=== PATIENT | female | born 1980 | race Caucasian/White ===

== ENCOUNTER → 2016-04-30 | Outpatient (CLI) | payer OTHER ==
[2013-10-26 15:10] VITALS: BP 112/78
[~2016-04-30] MED LIST: HYDR-2666 PO; IBUP-1060 PO
--- NOTE | 2016-04-30 10:16 | KCIC ---
Examination: Ultrasound pelvis. HISTORY History of right lower quadrant, pelvic pain. COMPARISON None available Findings: The uterus is not identified likely prior hysterectomy. The left ovary is not visualized likely prior oophorectomy changes. The right ovary measures 2.4 x 4.0 x 1.9 centimeters. Blood flow identified in the right ovary. IMPRESSION Normal appearing right ovary. The left ovary and the uterus are not identified could be due to prior surgical changes. Electronically signed by: Reid Allan (Apr 30, 2016 10:15:15)
== END | disposition home or self-care (01) ==
LOC: KCIC US 09:41
PROVIDERS: ATTEND Nurse Practitioner Family
DX: R10.2 Pelvic and perineal pain (principal)
CPT/HCPCS: 76856

== ENCOUNTER 2016-10-27 11:47 | Observation (INO) | payer OTHER ==
[~2016-10-27] VITALS: Ht 170.2 cm; Wt 131.5 kg
[2016-10-27] VITALS (7 sets, daily range): BP systolic 103–141; BP diastolic 55–77
[~2016-10-27 11:47] MED LIST changes: -HYDR-2666 PO; +HYDR-2758 PO
--- NOTE | 2016-10-27 12:29 | PHYS DOC ---
Past Medical History Past Medical History: No Pertinent History Past Surgical History: Cholecystectomy, Hysterectomy, Tonsillectomy, Tubal ligation, Other Additional Past Surgical Histo: Uterine ablation. adreal ectomy Alcohol Use: Rarely Drug Use: None Adult General Chief Complaint Chief Complaint: ABDOMINAL PAIN HPI HPI Patient is a 36 year old female presenting to the emergency department for evaluation of right lower quadrant abdominal pain that woke her from her sleep at approximately 5 AM this morning. She says that it has worsened throughout the day and she has had 2 episodes of nonbloody nonbilious emesis. Pain is sharp with no radiation fevers chills dysuria hematuria diarrhea or constipation. She has had multiple abdominal surgeries including a hysterectomy with her right ovary still present. Review of Systems Review of Systems Constitutional: Denies fever or chills [] Eyes: Denies change in visual acuity, redness, or eye pain [] HENT: Denies nasal congestion or sore throat [] Respiratory: Denies cough or shortness of breath [] Cardiovascular: No additional information not addressed in HPI [] GI: + abdominal pain, nausea, vomiting. No bloody stools or diarrhea [] : Denies dysuria or hematuria [] Musculoskeletal: Denies back pain or joint pain [] Integument: Denies rash or skin lesions [] Neurologic: Denies headache, focal weakness or sensory changes [] Current Medications Current Medications Current Medications Medications (Trade) Dose Ordered Sig/Osbaldo Start Time Stop Time Status Last Admin Dose Admin Info (Do NOT chart on this entry -- for MONITORING) 1 each PRN DAILY PRN 10/27/16 12:45 10/29/16 12:44 Iohexol (Omnipaque 300 Mg/ml) 75 ml 1X ONCE 10/27/16 12:45 10/27/16 12:46 DC 10/27/16 13:45 75 ML Ketorolac Tromethamine (Toradol) 30 mg 1X ONCE 10/27/16 16:30 10/27/16 16:31 DC Morphine Sulfate 5 mg 1X ONCE 10/27/16 14:00 10/27/16 14:01 DC 10/27/16 14:07 5 MG Ondansetron HCl (Zofran) 8 mg 1X ONCE 10/27/16 12:45 10/27/16 12:46 DC 10/27/16 13:01 8 MG Sodium Chloride 1,000 ml @ 1,000 mls/hr 1X ONCE 10/27/16 12:45 10/27/16 13:44 DC 10/27/16 13:01 1,000 MLS/HR Allergies Allergies Allergies Coded Allergies Type Severity Reaction Last Updated Verified guaifenesin Adverse Reaction Intermediate passed out 10/23/13 No phenylephrine Adverse Reaction Intermediate passed out 10/23/13 No phenylpropanolamine Adverse Reaction Intermediate passed out 10/23/13 No Physical Exam Physical Exam Constitutional: Well developed, well nourished, no acute distress, non-toxic appearance. [] HENT: Normocephalic, atraumatic, bilateral external ears normal, oropharynx moist, no oral exudates, nose normal. [] Eyes: PERRLA, EOMI, conjunctiva normal, no discharge. [] Neck: Normal range of motion, no tenderness, supple, no stridor. [] Cardiovascular:Heart rate regular rhythm, no murmur [] Lungs & Thorax: Bilateral breath sounds clear to auscultation [] Abdomen: Bowel sounds normal, soft, + RLQ tenderness over McBurney's, no rebound or guarding, no masses, no pulsatile masses. [] Skin: Warm, dry, no erythema, no rash. [] Back: No tenderness, no CVA tenderness. [] Extremities: No tenderness, no cyanosis, no clubbing, ROM intact, no edema. [] Neurologic: Alert and oriented X 3, normal motor function, normal sensory function, no focal deficits noted. [] Current Patient Data Vital Signs Vital Signs Date Time Temp Pulse Resp B/P (MAP) Pulse Ox O2 Delivery O2 Flow Rate FiO2 10/27/16 17:00 72 122/64 (83) 97 Room Air 10/27/16 15:05 14 10/27/16 12:16 98.2 98.2 Lab Values Laboratory Tests Test 10/27/16 11:24 10/27/16 12:16 10/27/16 12:55 POC Urine HCG, Qualitative Hcg negative (Negative) Urine Collection Type Unknown Urine Color Yellow Urine Clarity Clear Urine pH 6.5 Urine Specific [place] 1.010 Urine Protein Negative mg/dL (NEG-TRACE) Urine Glucose (UA) Negative mg/dL (NEG) Urine Ketones (Stick) Negative mg/dL (NEG) Urine Blood Negative (NEG) Urine Nitrite Negative (NEG) Urine Bilirubin Negative (NEG) Urine Urobilinogen Dipstick 1.0 mg/dL (0.2 mg/dL) Urine Leukocyte Esterase Negative (NEG) Urine RBC 0 /HPF (0-2) Urine WBC 0 /HPF (0-4) Urine Squamous Epithelial Cells Mod /LPF Urine Bacteria Moderate /HPF (0-FEW) Urine Mucus Mod /LPF White Blood Count 7.8 x10^3/uL (4.0-11.0) Red Blood Count 4.30 x10^6/uL (3.50-5.40) Hemoglobin 11.7 g/dL (12.0-15.5) L Hematocrit 36.0 % (36.0-47.0) Mean Corpuscular Volume 84 fL (79-100) Mean Corpuscular Hemoglobin 27 pg (25-35) Mean Corpuscular Hemoglobin Concent 33 g/dL (31-37) Red Cell Distribution Width 13.6 % (11.5-14.5) Platelet Count 241 x10^3/uL (140-400) Neutrophils (%) (Auto) 70 % (31-73) Lymphocytes (%) (Auto) 24 % (24-48) Monocytes (%) (Auto) 3 % (0-9) Eosinophils (%) (Auto) 1 % (0-3) Basophils (%) (Auto) 1 % (0-3) Neutrophils # (Auto) 5.4 x10^3uL (1.8-7.7) Lymphocytes # (Auto) 1.9 x10^3/uL (1.0-4.8) Monocytes # (Auto) 0.3 x10^3/uL (0.0-1.1) Eosinophils # (Auto) 0.1 x10^3/uL (0.0-0.7) Basophils # (Auto) 0.1 x10^3/uL (0.0-0.2) Prothrombin Time 13.1 SEC (11.7-14.0) Prothrombin Time INR 1.1 (0.8-1.1) PTT 33 SEC (24-38) Sodium Level 142 mmol/L (136-145) Potassium Level 3.8 mmol/L (3.5-5.1) Chloride Level 106 mmol/L (98-107) Carbon Dioxide Level 27 mmol/L (21-32) Anion Gap 9 (6-14) Blood Urea Nitrogen 9 mg/dL (7-20) Creatinine 0.7 mg/dL (0.6-1.0) Estimated GFR (Cockcroft-Gault) 95.2 BUN/Creatinine Ratio 13 (6-20) Glucose Level 90 mg/dL (70-99) Calcium Level 8.7 mg/dL (8.5-10.1) Total Bilirubin 0.3 mg/dL (0.2-1.0) Aspartate Amino Transferase (AST) 14 U/L (15-37) L Alanine Aminotransferase (ALT) 19 U/L (14-59) Alkaline Phosphatase 61 U/L (46-116) Total Protein 7.5 g/dL (6.4-8.2) Albumin 3.5 g/dL (3.4-5.0) Albumin/Globulin Ratio 0.9 (1.0-1.7) L Lipase 88 U/L (73-393) Laboratory Tests 10/27/16 12:55 Laboratory Tests 10/27/16 12:55 EKG EKG [] Radiology/Procedures Radiology/Procedures CT of the abdomen and pelvis with contrast, 10/27/2016: History: Right lower quadrant pain and vomiting Multidetector CT imaging was performed following an IV bolus injection of iodinated contrast material. No oral contrast material was administered for this study. Comparison is made to an exam from 09/25/2013. The gallbladder is surgically absent. No hepatic abnormality is seen. The pancreas is unremarkable. The spleen is of normal size. There is a 5 cm parapelvic renal cyst on the left. It has increased slightly in size since 09/25/2013. The kidneys are otherwise unremarkable. There are surgical clips in the left suprarenal region compatible with the history of an adrenalectomy. The abdominal aorta is unremarkable. The uterus is surgically absent. The bowel loops are not dilated. A normal-appearing appendix can be seen extending posteromedially from the cecum. There is a 4 cm mass in the upper pelvis on the right along the posterior aspect of the cecum and the anterolateral aspect of the psoas muscle in the right iliac fossa region. This may represent the right ovary. A similar sized structure was seen in the right lower quadrant on the ultrasound exam of 04/30/2016. The left ovary is reportedly surgically absent. No free fluid or free air is evident in the abdomen or pelvis. A fascial defect is now evident near the midline in the upper abdomen. This small hernia contains only fat. No herniated bowel is evident. IMPRESSION: 1. Small mass in the upper right pelvis along the posterior aspect of the cecum most likely represents an unusually positioned right ovary. 2. Left renal cyst. 3. Small fat-containing ventral hernia. 4. No acute abdominal or pelvic abnormality is detected. PQRS Compliance Statement: One or more of the following individualized dose reduction techniques were utilized for this examination: 1. Automated exposure control 2. Adjustment of the mA and/or kV according to patient size 3. Use of iterative reconstruction technique DICTATED and SIGNED BY: ALIYA HICKS MD DATE: 10/27/16 1412 Course & Med Decision Making Course & Med Decision Making Patient with nonspecific right lower quadrant abdominal pains or she'll get labs CT treat symptoms and reassess. My initial clinical assessment is that she may have appendicitis. CT negative but she says that she is still having severe pain. We will check ultrasound given abnormal climbing over and then reassess. Ultrasound was nondiagnostic and given her continued pain and concern for possible ovarian torsion the block breaker operator was emergently consulted Patient still continues to have pain and radiographically we have not made a diagnosis at this point. I spoke to Dr. Woo on the phone and he said he would come consult on the patient does patient may need a laparoscopy. I spoke to Dr. Burgess as well and he said he would be available soon for surgical consult if needed. Patient went to the operating room at approximately 1830. Unfortunately patient had nonspecific presentation with an appendix present playing with her diagnosis of potential ovarian torsion. Patient will be admitted under the care of Dr. Woo in stable condition. Dragon Disclaimer Dragon Disclaimer This electronic medical record was generated, in whole or in part, using a voice recognition dictation system. Departure Departure Impression: Primary Impression: Abdominal pain Disposition: ADMITTED INPATIENT Admitting Physician: Other (Chilo) Referrals: HORACIO CARTAGENA APRN (PCP) Problem Qualifiers Primary Impression: Abdominal pain Abdominal location: right lower quadrant Qualified Codes: R10.31 - Right lower quadrant pain INGRIS BAH DO Oct 27, 2016 12:29
[2016-10-27] MEDS ORDERED: IOHEXOL 300 MG/ML 75 ML VIAL IV ONE (12:45)
[2016-10-27] MEDS ORDERED: ONDANSETRON PF 4 MG/2 ML VIAL. IV ONE (12:45)
[2016-10-27] MEDS ORDERED: MORPHINE SULFATE 10 MG/ML VIAL. IV ONE ×2 (12:45→14:00)
[2016-10-27] MEDS ORDERED: CONTRAST GIVEN MC PRN (12:45)
[2016-10-27] MEDS ORDERED: IV NORMAL SALINE 1000ML BAG 1,000 ML IV ONE (12:45)
[2016-10-27 12:47] LABS: BILIRUBIN,URINE NEGATIVE (NEG); GLUCOSE,URINE NEGATIVE (NEG); NITRITE,URINE NEGATIVE (NEG); PH,URINE 6.5; PROTEIN,URINE NEGATIVE (NEG-TRACE)
[2016-10-27 12:56] LABS: BACTERIA,URINE MODERATE /HPF (0-FEW); RBC,URINE 0 /HPF (0-2); SQUAMOUS EPITHELIAL CELL,UR MOD /LPF; WBC,URINE 0 /HPF (0-4)
[2016-10-27 13:21] LABS: BASO # 0.1 x10^3/uL (0.0-0.2); BASO % 1 % (0-3); EOS % 1 % (0-3); HEMOGLOBIN 11.7 g/dL (12.0-15.5); LYMPH # 1.9 x10^3/uL (1.0-4.8); LYMPH % 24 % (24-48); MEAN CORPUSCULAR HEMOGLOBIN 27 pg (25-35); MEAN CORPUSCULAR HGB CONC 33 g/dL (31-37); MEAN CORPUSCULAR VOLUME 84 fL (79-100); MONO % 3 % (0-9); NEUT % 70 % (31-73); PLATELET COUNT 241 x10^3/uL (140-400); RED CELL DISTRIBUTION WIDTH 13.6 % (11.5-14.5); WHITE BLOOD COUNT 7.8 x10^3/uL (4.0-11.0)
[2016-10-27 13:31] LABS: INR 1.1 (0.8-1.1); PROTHROMBIN TIME PATIENT 13.1 SEC (11.7-14.0)
[2016-10-27 13:33] LABS: CALCIUM 8.7 mg/dL (8.5-10.1); CREATININE 0.7 mg/dL (0.6-1.0); GFR 95.2; POTASSIUM 3.8 mmol/L (3.5-5.1)
[2016-10-27 13:38] LABS: ALBUMIN 3.5 g/dL (3.4-5.0); ALBUMIN/GLOBULIN RATIO 0.9 (1.0-1.7); TOTAL BILIRUBIN 0.3 mg/dL (0.2-1.0); TOTAL PROTEIN 7.5 g/dL (6.4-8.2)
--- NOTE | 2016-10-27 14:33 | RAD ---
CT of the abdomen and pelvis with contrast, 10/27/2016: History: Right lower quadrant pain and vomiting Multidetector CT imaging was performed following an IV bolus injection of iodinated contrast material. No oral contrast material was administered for this study. Comparison is made to an exam from 09/25/2013. The gallbladder is surgically absent. No hepatic abnormality is seen. The pancreas is unremarkable. The spleen is of normal size. There is a 5 cm parapelvic renal cyst on the left. It has increased slightly in size since 09/25/2013. The kidneys are otherwise unremarkable. There are surgical clips in the left suprarenal region compatible with the history of an adrenalectomy. The abdominal aorta is unremarkable. The uterus is surgically absent. The bowel loops are not dilated. A normal-appearing appendix can be seen extending posteromedially from the cecum. There is a 4 cm mass in the upper pelvis on the right along the posterior aspect of the cecum and the anterolateral aspect of the psoas muscle in the right iliac fossa region. This may represent the right ovary. A similar sized structure was seen in the right lower quadrant on the ultrasound exam of 04/30/2016. The left ovary is reportedly surgically absent. No free fluid or free air is evident in the abdomen or pelvis. A fascial defect is now evident near the midline in the upper abdomen. This small hernia contains only fat. No herniated bowel is evident. IMPRESSION: 1. Small mass in the upper right pelvis along the posterior aspect of the cecum most likely represents an unusually positioned right ovary. 2. Left renal cyst. 3. Small fat-containing ventral hernia. 4. No acute abdominal or pelvic abnormality is detected. PQRS Compliance Statement: One or more of the following individualized dose reduction techniques were utilized for this examination: 1. Automated exposure control 2. Adjustment of the mA and/or kV according to patient size 3. Use of iterative reconstruction technique
[2016-10-27] MEDS ORDERED: KETOROLAC TROMETHAMINE 30 MG/ML INJ. IV ONE (16:30)
--- NOTE | 2016-10-27 17:08 | RAD ---
Ultrasound pelvis 10/27/2016 at 1539 hours Indication: Right lower pelvic pain Comparison: CT abdomen/pelvis 10/27/2016 Technique: Sonographic imaging of the pelvis was performed utilizing transabdominal and transvaginal imaging. Grayscale, color Doppler and spectral waveform analysis was performed. Findings: There is a nondescript hypoechoic focus measuring 2.2 x 1.5 x 2.9 cm without follicular changes. It is difficult to ascertain whether this is the right ovary. Arterial waveform is not identified utilizing spectral analysis. Venous waveform is noted. Small amount of free fluid is noted within the pelvis. Vaginal cuff is within normal limits. Status post hysterectomy and left oophorectomy. Impression: 1. There is a 2.2 x 1.5 x 2.9 cm nondescript focus in the right pelvis, of uncertain etiology. It cannot be confirmed that this is the right ovary. This appears to be in a separate location compared to the retrocecal mass. Recommend gynecologic consultation as differential considerations would include ovarian torsion versus a retrocecal mass such as a mucocele or appendiceal mass versus enlarged lymph node. Critical findings were discussed with Dr. Ferreria at 5:00 PM on 10/27/[address] Blas.
[2016-10-27] MEDS ORDERED: PROMETHAZINE 25 MG in IV NORMAL SALINE 50ML 50 ML IV ONE (17:45)
[2016-10-27] MEDS ORDERED: LIDOCAINE 2% PF Vial for OR 5 ML VIAL. ONE (18:11)
[2016-10-27] MEDS ORDERED: PROPOFOL 20 ML IV ONE (18:11)
[2016-10-27] MEDS ORDERED: DEXAMETHASONE SOD PHOS 20 MG/5 ML VIAL. ONE (18:11)
[2016-10-27] MEDS ORDERED: ONDANSETRON PF 4 MG/2 ML VIAL. ONE (18:11)
[2016-10-27] MEDS ORDERED: DESFLURANE 61 TO 120 MINUTES IH ONE (18:11)
[2016-10-27] MEDS ORDERED: MIDAZOLAM HCL/PF 2 MG/2 ML VIAL. ONE (18:11)
[2016-10-27] MEDS ORDERED: fentaNYL PF VIAL 100 MCG/2 ML VIAL ONE (18:12)
[2016-10-27] MEDS ORDERED: fentaNYL PF VIAL 100 MCG/2 ML VIAL IV PRN ×3 (18:15→20:00)
[2016-10-27] MEDS ORDERED: ONDANSETRON PF 4 MG/2 ML VIAL. IV PRN ×3 (18:15→20:00)
[2016-10-27] MEDS ORDERED: BUPIVAC MPF-EPI 0.5%-1:200000 30 ML VIAL. ONE (18:32)
[2016-10-27] MEDS ORDERED: SURGICEL HEMOSTAT 4X8 EACH. ONE (18:32)
[2016-10-27] MEDS ORDERED: 0.9 % SODIUM CHLORIDE 50 ML VIAL. IJ ONE (18:32)
--- NOTE | 2016-10-27 18:41 | PDOC1 ---
History and Physical Date of Admission Date of Admission DATE: 10/27/16 TIME: 18:37 Identification/Chief Complaint Chief Complaint Abd pain Problems: Source Source: Chart review, Patient History of Present Illness History of Present Illness 36 y/o with gradual onset of RLQ with N/V that continued to worsen since 0500 today. She has h/o MARIFER, LSO, Cholecystectomy, Nephrectomy/Adrenalectomy in the past. Past Surgical History Past Surgical History: Cholecystectomy, Hysterectomy Social History Smoke: No ALCOHOL: none Drugs: None Current Problem List Problem List Problems Medical Problems: (1) Abdominal pain Status: Acute Problems: Current Medications Current Medications Current Medications Sodium Chloride 1,000 ml @ 1,000 mls/hr 1X ONCE IV Last administered on 13:01; Start 10/27/16 at 12:45; Stop 10/27/16 at 13:44; Status DC Morphine Sulfate 5 mg 1X ONCE IV Last administered on 10/27/16 13:01; Start 10/27/16 at 12:45; Stop 10/27/16 at 12:46; Status DC Ondansetron HCl (Zofran) 8 mg 1X ONCE IV Last administered on 10/27/16 13:01 ; Start 10/27/16 at 12:45; Stop 10/27/16 at 12:46; Status DC Iohexol (Omnipaque 300 Mg/ml) 75 ml 1X ONCE IV Last administered on 10/27/16 13:45; Start 10/27/16 at 12:45; Stop 10/27/16 at 12:46; Status DC Info (Do NOT chart on this entry -- for MONITORING) 1 each PRN DAILY PRN MC SEE COMMENTS; Start 10/27/16 at 12:45; Stop 10/29/16 at 12:44 Morphine Sulfate 5 mg 1X ONCE IV Last administered on 10/27/16 14:07; Start 10/27/16 at 14:00; Stop 10/27/16 at 14:01; Status DC Ketorolac Tromethamine (Toradol) 30 mg 1X ONCE IV ; Start 10/27/16 at 16:30; Stop 10/27/16 at 16:31; Status DC Promethazine HCl 25 mg/Sodium Chloride 51 ml @ 101 mls/hr 1X ONCE IV Last administered on 10/27/16 17:54; Start 10/27/16 at 17:45; Stop 10/27/16 at 18:15 ; Status DC Ondansetron HCl (Zofran) 4 mg PRN Q8HRS PRN IV NAUSEA/VOMITING; Start 10/27/16 at 18:15; Stop 10/28/16 at 18:14 Fentanyl Citrate (Fentanyl 2ml Vial) 50 mcg PRN Q2HR PRN IV PAIN; Start at 18:15; Stop 10/28/16 at 18:14 Dexamethasone Sodium Phosphate (Decadron) 20 mg STK-MED ONCE .ROUTE ; Start at 18:11; Stop 10/27/16 at 18:12; Status DC Ondansetron HCl (Zofran) 4 mg STK-MED ONCE .ROUTE ; Start 10/27/16 at 18:11; Stop 10/27/16 at 18:12; Status DC Propofol 20 ml @ As Directed STK-MED ONCE IV ; Start 10/27/16 at 18:11; Stop at 18:12; Status DC Lidocaine HCl (Lidocaine Pf 2% Vial) 5 ml STK-MED ONCE .ROUTE ; Start 10/27/16 at 18:11; Stop 10/27/16 at 18:12; Status DC Desflurane (Suprane) 60 ml STK-MED ONCE IH ; Start 10/27/16 at 18:11; Stop 10/27 at 18:12; Status DC Midazolam HCl (Versed) 2 mg STK-MED ONCE .ROUTE ; Start 10/27/16 at 18:11; Stop 10/27/16 at 18:12; Status DC Fentanyl Citrate (Fentanyl 2ml Vial) 100 mcg STK-MED ONCE .ROUTE ; Start at 18:12; Stop 10/27/16 at 18:13; Status DC Cellulose 1 each STK-MED ONCE .ROUTE ; Start 10/27/16 at 18:32; Stop 10/27/16 at 18:33; Status DC Bupivacaine HCl/ Epinephrine Bitart (Sensorcain-Mpf Epi 0.5%-[id number]) 30 ml STK -MED ONCE .ROUTE ; Start 10/27/16 at 18:32; Stop 10/27/16 at 18:33; Status DC Sodium Chloride (Sodium Chloride) 50 ml STK-MED ONCE IJ ; Start 10/27/16 at 18: 32; Stop 10/27/16 at 18:33; Status DC Active Scripts Active Reported Hydrocodone-Apap 5-325 (Hydrocodone Bit/Acetaminophen) 1 Each Tablet 1-2 Tab PO Q4-6HRS Ibuprofen 800 Mg Tablet 1 Tab PO TID Allergies Allergies: Coded Allergies: guaifenesin (Unverified Adverse Reaction, Intermediate, passed out, ) phenylephrine (Unverified Adverse Reaction, Intermediate, passed out, 10/23) phenylpropanolamine (Unverified Adverse Reaction, Intermediate, passed out , 10/23/13) ROS General: YES: Fatigue, Malaise, Appetite, No: Chills, Night Sweats, Other PSYCHOLOGICAL ROS: No: Anxiety, Behavioral Disorder, Concentration difficultie , Decreased libido, Depression, Disorientation, Hallucinations, Hostility, Irritablity, Memory difficulties, Mood Swings, Obsessive thoughts, Physical abuse, Sexual abuse, Sleep disturbances, Suicidal ideation, Other Eyes: No Blurry vision, No Decreased vision, No Double vision, No Dry eyes, No Excessive tearing, No Eye Pain, No Itchy Eyes, No Loss of vision, No Photophobia , No Scotomata, No Uses contacts, No Uses glasses, No Other HEENT: No: Heacaches, Visual Changes, Hearing change, Nasal congestion, Nasal discharge, Oral lesions, Sinus pain, Sore Throat, Epistaxis, Sneezing, Snoring, Tinnitus, Vertigo, Vocal changes, Other ALLERGY AND IMMUNOLOGY: No: Hives, Insect Bite Sensitivity, Itchy/Watery Eyes, Nasal Congestion, Post Nasal Drip, Seasonal Allergies, Other Hematological and Lymphatic: No: Bleeding Problems, Blood Clots, Blood Transfusions, Brusing, Night Sweats, Pallor, Swollen Lymph Nodes, Other ENDOCRINE: No: Breast Changes, Galactorrhea, Hair Pattern Changes, Hot Flashes , Malaise/lethargy, Mood Swings, Palpitations, Polydipsia/polyuria, Skin Changes , Temperature Intolerance, Unexpected Weight Changes, Other Breast: No New/Changing Breast Lumps, No Nipple changes, No Nipple discharge, No Other Respiratory: No: Cough, Hemoptysis, Orthopnea, Pleuritic Pain, Shortness of breath, SOB with excertion, Sputum Changes, Stridor, Tachypnea, Wheezing, Other Cardiovascular: No Chest Pain, No Palpitations, No Orthopnea, No Paroxysmal Noc. Dyspnea, No Edema, No Lt Headedness, No Other Gastrointestinal: Yes Nausea, Yes Vomiting, Yes Abdominal Pain, No Diarrhea, No Constipation, No Melena, No Hematochezia, No Other Genitourinary: No Dysuria, No Frequency, No Incontinence, No Hematuria, No Retention, No Discharge, No Urgency, No Pain, No Flank Pain, No Other, No , No , No , No , No , No , No Musculoskeletal: No Gait Disturbance, No Joint Pain, No Joint Stiffness, No Joint Swelling, No Muscle Pain, No Muscular Weakness, No Pain In:, No Swelling In:, No Other Neurological: No Behavorial Changes, No Bowel/Bladder ControlChng, No Confusion , No Dizziness, No Gait Disturbance, No Headaches, No Impaired Coord/balance, No Memory Loss, No Numbness/Tingling, No Seizures, No Speech Problems, No Tremors, No Visual Changes, No Weakness, No Other Skin: No Dry Skin, No Eczema, No Hair Changes, No Lumps, No Mole Changes, No Mottling, No Nail Changes, No Pruritus, No Rash, No Skin Lesion Changes, No Other, No Acne Physical Exam General: Alert, Oriented X3, Cooperative HEENT: Atraumatic Lungs: Clear to auscultation Heart: S1S2 Breasts: Normal Abdomen: Normal bowel sounds, Soft, No masses, Other (RLQ tenderness with rebound tenderness and gaurding) Vitals Vitals Vital Signs Date Time Temp Pulse Resp B/P (MAP) Pulse Ox O2 Delivery O2 Flow Rate FiO2 10/27/16 17:00 72 122/64 (83) 97 Room Air 10/27/16 15:05 14 10/27/16 12:16 98.2 98.2 Labs Labs Laboratory Tests Test 10/27/16 11:24 10/27/16 12:16 10/27/16 12:55 Bedside Urine HCG, Qualitative Hcg negative (Negative) Urine Collection Type Unknown Urine Color Yellow Urine Clarity Clear Urine pH 6.5 Urine Specific [place] 1.010 Urine Protein Negative mg/dL (NEG-TRACE) Urine Glucose (UA) Negative mg/dL (NEG) Urine Ketones (Stick) Negative mg/dL (NEG) Urine Blood Negative (NEG) Urine Nitrite Negative (NEG) Urine Bilirubin Negative (NEG) Urine Urobilinogen Dipstick 1.0 mg/dL (0.2 mg/dL) Urine Leukocyte Esterase Negative (NEG) Urine RBC 0 /HPF (0-2) Urine WBC 0 /HPF (0-4) Urine Squamous Epithelial Cells Mod /LPF Urine Bacteria Moderate /HPF (0-FEW) Urine Mucus Mod /LPF White Blood Count 7.8 x10^3/uL (4.0-11.0) Red Blood Count 4.30 x10^6/uL (3.50-5.40) Hemoglobin 11.7 g/dL (12.0-15.5) Hematocrit 36.0 % (36.0-47.0) Mean Corpuscular Volume 84 fL (79-100) Mean Corpuscular Hemoglobin 27 pg (25-35) Mean Corpuscular Hemoglobin Concent 33 g/dL (31-37) Red Cell Distribution Width 13.6 % (11.5-14.5) Platelet Count 241 x10^3/uL (140-400) Neutrophils (%) (Auto) 70 % (31-73) Lymphocytes (%) (Auto) 24 % (24-48) Monocytes (%) (Auto) 3 % (0-9) Eosinophils (%) (Auto) 1 % (0-3) Basophils (%) (Auto) 1 % (0-3) Neutrophils # (Auto) 5.4 x10^3uL (1.8-7.7) Lymphocytes # (Auto) 1.9 x10^3/uL (1.0-4.8) Monocytes # (Auto) 0.3 x10^3/uL (0.0-1.1) Eosinophils # (Auto) 0.1 x10^3/uL (0.0-0.7) Basophils # (Auto) 0.1 x10^3/uL (0.0-0.2) Prothrombin Time 13.1 SEC (11.7-14.0) Prothromb Time International Ratio 1.1 (0.8-1.1) Activated Partial Thromboplast Time 33 SEC (24-38) Sodium Level 142 mmol/L (136-145) Potassium Level 3.8 mmol/L (3.5-5.1) Chloride Level 106 mmol/L (98-107) Carbon Dioxide Level 27 mmol/L (21-32) Anion Gap 9 (6-14) Blood Urea Nitrogen 9 mg/dL (7-20) Creatinine 0.7 mg/dL (0.6-1.0) Estimated GFR (Cockcroft-Gault) 95.2 BUN/Creatinine Ratio 13 (6-20) Glucose Level 90 mg/dL (70-99) Calcium Level 8.7 mg/dL (8.5-10.1) Total Bilirubin 0.3 mg/dL (0.2-1.0) Aspartate Amino Transf (AST/SGOT) 14 U/L (15-37) Alanine Aminotransferase (ALT/SGPT) 19 U/L (14-59) Alkaline Phosphatase 61 U/L (46-116) Total Protein 7.5 g/dL (6.4-8.2) Albumin 3.5 g/dL (3.4-5.0) Albumin/Globulin Ratio 0.9 (1.0-1.7) Lipase 88 U/L (73-393) Laboratory Tests Test 10/27/16 11:24 10/27/16 12:16 10/27/16 12:55 Bedside Urine HCG, Qualitative Hcg negative (Negative) Urine Collection Type Unknown Urine Color Yellow Urine Clarity Clear Urine pH 6.5 Urine Specific [place] 1.010 Urine Protein Negative mg/dL (NEG-TRACE) Urine Glucose (UA) Negative mg/dL (NEG) Urine Ketones (Stick) Negative mg/dL (NEG) Urine Blood Negative (NEG) Urine Nitrite Negative (NEG) Urine Bilirubin Negative (NEG) Urine Urobilinogen Dipstick 1.0 mg/dL (0.2 mg/dL) Urine Leukocyte Esterase Negative (NEG) Urine RBC 0 /HPF (0-2) Urine WBC 0 /HPF (0-4) Urine Squamous Epithelial Cells Mod /LPF Urine Bacteria Moderate /HPF (0-FEW) Urine Mucus Mod /LPF White Blood Count 7.8 x10^3/uL (4.0-11.0) Red Blood Count 4.30 x10^6/uL (3.50-5.40) Hemoglobin 11.7 g/dL (12.0-15.5) Hematocrit 36.0 % (36.0-47.0) Mean Corpuscular Volume 84 fL (79-100) Mean Corpuscular Hemoglobin 27 pg (25-35) Mean Corpuscular Hemoglobin Concent 33 g/dL (31-37) Red Cell Distribution Width 13.6 % (11.5-14.5) Platelet Count 241 x10^3/uL (140-400) Neutrophils (%) (Auto) 70 % (31-73) Lymphocytes (%) (Auto) 24 % (24-48) Monocytes (%) (Auto) 3 % (0-9) Eosinophils (%) (Auto) 1 % (0-3) Basophils (%) (Auto) 1 % (0-3) Neutrophils # (Auto) 5.4 x10^3uL (1.8-7.7) Lymphocytes # (Auto) 1.9 x10^3/uL (1.0-4.8) Monocytes # (Auto) 0.3 x10^3/uL (0.0-1.1) Eosinophils # (Auto) 0.1 x10^3/uL (0.0-0.7) Basophils # (Auto) 0.1 x10^3/uL (0.0-0.2) Prothrombin Time 13.1 SEC (11.7-14.0) Prothromb Time International Ratio 1.1 (0.8-1.1) Activated Partial Thromboplast Time 33 SEC (24-38) Sodium Level 142 mmol/L (136-145) Potassium Level 3.8 mmol/L (3.5-5.1) Chloride Level 106 mmol/L (98-107) Carbon Dioxide Level 27 mmol/L (21-32) Anion Gap 9 (6-14) Blood Urea Nitrogen 9 mg/dL (7-20) Creatinine 0.7 mg/dL (0.6-1.0) Estimated GFR (Cockcroft-Gault) 95.2 BUN/Creatinine Ratio 13 (6-20) Glucose Level 90 mg/dL (70-99) Calcium Level 8.7 mg/dL (8.5-10.1) Total Bilirubin 0.3 mg/dL (0.2-1.0) Aspartate Amino Transf (AST/SGOT) 14 U/L (15-37) Alanine Aminotransferase (ALT/SGPT) 19 U/L (14-59) Alkaline Phosphatase 61 U/L (46-116) Total Protein 7.5 g/dL (6.4-8.2) Albumin 3.5 g/dL (3.4-5.0) Albumin/Globulin Ratio 0.9 (1.0-1.7) Lipase 88 U/L (73-393) VTE Prophylaxis Ordered VTE Prophylaxis Devices: Yes VTE Pharmacological Prophylaxi: No Assessment/Plan Assessment/Plan A: RLQ pain : suspicious for ROV torsion P: Plan for LPSC RSO with possible open laparotomy if torsion confirmed and ovary unable to salvage. YANN MADDOX Jr, MD Oct 27, 2016 18:41
[2016-10-27] MEDS ORDERED: CEFAZOLIN 1 GM IV ONE (18:59)
--- NOTE | 2016-10-27 19:37 | PDOC ---
BRIEF OPERATIVE NOTE Pre-Op Diagnosis RLQ pain Post-Op Diagnosis SAme + ROV torsion [facility] Anesthesia Type: General Blood Loss 10 ml Specimens Obtained Right fallopian tube and ROV Findings ROV torsion with absent perfusion; nml appendix Complications none YANN WOO Jr, MD Oct 27, 2016 19:37
[2016-10-27] MEDS ORDERED: DEXTROSE 50% 25 GM / 50ML DISP.SYRIN. IV PRN (19:45)
[2016-10-27] MEDS ORDERED: SIMETHICONE 80 MG TAB.CHEW PO PRN (19:45)
[2016-10-27] MEDS ORDERED: diphenhydrAMINE HCL 25 MG CAPSULE PO PRN (19:45)
[2016-10-27] MEDS ORDERED: diphenhydrAMINE 50 MG/ML VIAL IV PRN (19:45)
[2016-10-27] MEDS ORDERED: ZOLPIDEM 5 MG TABLET. PO PRN (19:45)
[2016-10-27] MEDS ORDERED: oxyCODONE/APAP 5/325 1 TAB TABLET PO PRN (19:45)
[2016-10-27] MEDS ORDERED: 0.9 % SODIUM CHLORIDE 10 ML DISP.SYRIN. IV PRN (19:45)
[2016-10-27] MEDS ORDERED: KETOROLAC TROMETHAMINE 30 MG/ML INJ. IV PRN (19:45)
[2016-10-27] MEDS ORDERED: PROCHLORPERAZINE 10 MG/2 ML VIAL. IV PRN ×2 (19:45→20:00)
[2016-10-27] MEDS ORDERED: CALCIUM CARBONATE 500 MG TAB.CHEW PO PRN (19:45)
[2016-10-27] MEDS ORDERED: IV RINGERS,LACTATED 1000ML 1,000 ML IV SCH (19:51)
[2016-10-27] MEDS ORDERED: MORPHINE SULFATE 2 MG/ML DISP.SYRIN. IV PRN (20:00)
[2016-10-27] MEDS ORDERED: HYDROmorphone 2 MG/ML VIAL IV PRN (20:00)
[2016-10-27] MEDS ORDERED: LIDOCAINE 1% 1 ML SYRINGE. ID PRN (20:00)
--- NOTE | 2016-10-27 20:01 | OP ---
DATE OF SURGERY: PREOPERATIVE DIAGNOSES: A 36-year-old female who had gradual onset of right lower quadrant pain that started this morning at 5:00 that continued to worsen. She then presented to Emergency Department. In the Emergency Department, found to have high likelihood of right ovarian torsion. The patient was counseled on risks, benefits and expectations for laparoscopic RSO, possible open laparotomy. She voiced clear understanding to proceed. DESCRIPTION OF PROCEDURE: The patient was taken to the surgery suite and placed in dorsal lithotomy position where she was prepped with Betadine for vaginal prep and ChloraPrep for abdominal prep. After adequate anesthesia, sponge stick was placed vaginally. Attention was placed on abdomen. Small transverse skin incision was made just below the umbilicus with a scalpel with a Veress needle was then placed through the infraumbilical incision site. The abdomen was allowed to insufflate up to 1-1/2 liters CO2 gas. The Veress needle was then removed, 5 mm trocar was placed. Scope was positioned. The right fallopian tube and ovary were visualized and were very dusky in appearance and indicated decreased to no perfusion of the ovary. Two incisions were made in the left lower quadrant, which an 11 mm trocar and 5 mm trocar was placed with aid of graspers and EnSeal device. The right infundibulopelvic ligament pedicle was coagulated and dissected. The right fallopian tube and ovary were then placed in the Endobag and removed. Suction irrigation was utilized to verify good hemostasis. Small amount of normal saline was left in the posterior cul-de-sac. The trocars were then removed under direct visualization. The abdomen was allowed to deflate as much as possible along with mechanical manipulation. The 11 mm port was closed at the fascial layer using 2-0 Vicryl suture in a [id number] manner. The three skin incisions were reapproximated at the skin level using 4-0 Vicryl suture in subcuticular manner. A 0.5% Marcaine with epinephrine was injected at each incision site. The sponge stick was removed. The patient tolerated the procedure well and was taken to recovery room in stable condition. Sponge and needle count was correct x 3. YANN MADDOX MD DR: NEFTALI/israel JOB#: [id number] / [id number]
[2016-10-27] MEDS ORDERED: GABAPENTIN 300 MG CAPSULE. PO SCH (22:00)
[2016-10-28 00:37] VITALS: BP 100/42
--- NOTE | 2016-10-28 01:30 | ACF ---
Admission Forms Criteria ABDOMINAL PAIN Clinical Indications for Admission to Inpatient Care ( [place]/check or initial the applicable condition/criteria): Admission is indicated for ANY ONE of the following (1)(2)(3)(4)(5)(6): [ ]I. Surgery needed that cannot be performed on ambulatory basis [ ]II. Peritoneal signs present (eg, rebound tenderness, rigidity) [ ]III. Evaluation requires patient to not eat or drink for extended period ( eg, more than 24 hours). [X]IV. Inpatient admission required[B] rather than observation care (see Abdominal Pain: Observation Care guideline as appropriate) because of ANY ONE of the following(7)(8)(9): [ ] a) Hemodynamic instability [ ]b) Severe pain requiring acute inpatient management [X]c) Identification of etiology or finding that requires inpatient care (eg, aortic dissection, free air,bowel ischemia)(10) [ ]d) Absent bowel sounds with complete ileus (11) [ ]e) Signs of intestinal obstruction[C] [ ]f) Suspected toxic megacolon [ ]g) Severe electrolyte abnormalities requiring inpatient care [ ]h) High fever or infection requiring inpatient admission as indicated by ANY ONE of the following (12)(13): [ ]i) Appropriate outpatient or observation care antimicrobial treatment unavailable, not effective, or not feasible [ ]ii) Documented bacteremia [ ]iii) Temperature greater than 104.9 degrees F (40.5 degrees C) (oral) [ ]iv) Temperature greater than 103.1 degrees F (39.5 degrees C) ( oral) or less than 96.8 degrees F (36 degrees C) (rectal) that does not respond to all emergency treatment measures [ ]i) IV fluid required rather than oral rehydration to replace significant ongoing (eg, for greater than 24 hours) losses (greater than 3 L/m2 per day)(14)(15) [ ]j) Percutaneous or open drainage (eg, abscess, biliary tract) procedures [ ]k) Parenteral nutrition regimen that must be implemented on inpatient basis [ ]l) Other condition, treatment, or monitoring requiring inpatient admission Extended stay beyond goal length of stay may be needed for (1)(3)(4)(10)(16): [ ]a) Surgery (e.g., colectomy, revascularization procedure) [ ]b) Persistent abdominal pain with suspected intra-abdominal process [ ]c) Diagnosed condition requiring continued stay (e.g., pancreatitis, complicated diverticulitis) The original [facility] content created by [facility] has been revised. The portions of the content which have been revised are identified through the use of italic text, and [facility] has neither reviewed nor approved the modified material.All other unmodified content is copyright [facility]. Please see references footnoted in the original [facility] edition 2015 Admission Criteria Met?: Yes TERE MARCELO Oct 28, 2016 01:30
[2016-10-28 05:19] LABS: BASO % 0 % (0-3); EOS % 0 % (0-3); HEMATOCRIT 33.4 % (36.0-47.0); HEMOGLOBIN 11.4 g/dL (12.0-15.5); LYMPH # 0.6 x10^3/uL (1.0-4.8); LYMPH % 10 % (24-48); MEAN CORPUSCULAR HEMOGLOBIN 28 pg (25-35); MEAN CORPUSCULAR HGB CONC 34 g/dL (31-37); MEAN CORPUSCULAR VOLUME 82 fL (79-100); MONO % 1 % (0-9); NEUT % 89 % (31-73); PLATELET COUNT 231 x10^3/uL (140-400); RED CELL DISTRIBUTION WIDTH 13.7 % (11.5-14.5); WHITE BLOOD COUNT 5.9 x10^3/uL (4.0-11.0)
[2016-10-28 05:33] VITALS: BP 95/49
[2016-10-28 05:34] LABS: CALCIUM 8.7 mg/dL (8.5-10.1); CREATININE 0.7 mg/dL (0.6-1.0); GFR 95.2; POTASSIUM 4.4 mmol/L (3.5-5.1)
[2016-10-28 07:53] LABS: PLT ESTIMATE ADEQUATE (ADEQUATE)
[2016-10-28 10:20] VITALS: BP 99/51
[2016-10-28] MEDS ORDERED: MORPHINE SULFATE 4 MG/ML DISP.SYRIN. IV PRN (11:32)
--- NOTE | 2016-10-28 13:07 | PDOC ---
SURGICAL PROGRESS NOTE Subjective Pt. feeling well. Vital Signs Vital Signs Date Time Temp Pulse Resp B/P (MAP) Pulse Ox O2 Delivery O2 Flow Rate FiO2 10/28/16 05:33 98.5 56 20 95/49 (64) 98 Room Air 98.5 10/27/16 19:48 10 I&O Intake and Output 10/28/16 07:00 Intake Total 1800 ml Output Total 160 ml Balance 1640 ml Intake IV Total 1800 ml Output Urine Total 150 ml Estimated Blood Loss 10 ml # Voids 2 General: Alert, Oriented X3, Cooperative HEENT: Atraumatic Lungs: Clear to auscultation Heart: Regular rate Abdomen: Normal bowel sounds, Soft, No tenderness Psych/Mental Status: Mental status NL Labs Laboratory Tests Test 10/27/16 11:24 10/27/16 12:16 10/27/16 12:55 10/28/16 04:40 Bedside Urine HCG, Qualitative Hcg negative (Negative) Urine Collection Type Unknown Urine Color Yellow Urine Clarity Clear Urine pH 6.5 Urine Specific [place] 1.010 Urine Protein Negative mg/dL (NEG-TRACE) Urine Glucose (UA) Negative mg/dL (NEG) Urine Ketones (Stick) Negative mg/dL (NEG) Urine Blood Negative (NEG) Urine Nitrite Negative (NEG) Urine Bilirubin Negative (NEG) Urine Urobilinogen Dipstick 1.0 mg/dL (0.2 mg/dL) Urine Leukocyte Esterase Negative (NEG) Urine RBC 0 /HPF (0-2) Urine WBC 0 /HPF (0-4) Urine Squamous Epithelial Cells Mod /LPF Urine Bacteria Moderate /HPF (0-FEW) Urine Mucus Mod /LPF White Blood Count 7.8 x10^3/uL (4.0-11.0) 5.9 x10^3/uL (4.0-11.0) Red Blood Count 4.30 x10^6/uL (3.50-5.40) 4.10 x10^6/uL (3.50-5.40) Hemoglobin 11.7 g/dL (12.0-15.5) 11.4 g/dL (12.0-15.5) Hematocrit 36.0 % (36.0-47.0) 33.4 % (36.0-47.0) Mean Corpuscular Volume 84 fL (79-100) 82 fL (79-100) Mean Corpuscular Hemoglobin 27 pg (25-35) 28 pg (25-35) Mean Corpuscular Hemoglobin Concent 33 g/dL (31-37) 34 g/dL (31-37) Red Cell Distribution Width 13.6 % (11.5-14.5) 13.7 % (11.5-14.5) Platelet Count 241 x10^3/uL (140-400) 231 x10^3/uL (140-400) Neutrophils (%) (Auto) 70 % (31-73) 89 % (31-73) Lymphocytes (%) (Auto) 24 % (24-48) 10 % (24-48) Monocytes (%) (Auto) 3 % (0-9) 1 % (0-9) Eosinophils (%) (Auto) 1 % (0-3) 0 % (0-3) Basophils (%) (Auto) 1 % (0-3) 0 % (0-3) Neutrophils # (Auto) 5.4 x10^3uL (1.8-7.7) 5.2 x10^3uL (1.8-7.7) Lymphocytes # (Auto) 1.9 x10^3/uL (1.0-4.8) 0.6 x10^3/uL (1.0-4.8) Monocytes # (Auto) 0.3 x10^3/uL (0.0-1.1) 0.1 x10^3/uL (0.0-1.1) Eosinophils # (Auto) 0.1 x10^3/uL (0.0-0.7) 0.0 x10^3/uL (0.0-0.7) Basophils # (Auto) 0.1 x10^3/uL (0.0-0.2) 0.0 x10^3/uL (0.0-0.2) Prothrombin Time 13.1 SEC (11.7-14.0) Prothromb Time International Ratio 1.1 (0.8-1.1) Activated Partial Thromboplast Time 33 SEC (24-38) Sodium Level 142 mmol/L (136-145) 138 mmol/L (136-145) Potassium Level 3.8 mmol/L (3.5-5.1) 4.4 mmol/L (3.5-5.1) Chloride Level 106 mmol/L (98-107) 105 mmol/L (98-107) Carbon Dioxide Level 27 mmol/L (21-32) 22 mmol/L (21-32) Anion Gap 9 (6-14) 11 (6-14) Blood Urea Nitrogen 9 mg/dL (7-20) 11 mg/dL (7-20) Creatinine 0.7 mg/dL (0.6-1.0) 0.7 mg/dL (0.6-1.0) Estimated GFR (Cockcroft-Gault) 95.2 95.2 BUN/Creatinine Ratio 13 (6-20) Glucose Level 90 mg/dL (70-99) 132 mg/dL (70-99) Calcium Level 8.7 mg/dL (8.5-10.1) 8.7 mg/dL (8.5-10.1) Total Bilirubin 0.3 mg/dL (0.2-1.0) Aspartate Amino Transf (AST/SGOT) 14 U/L (15-37) Alanine Aminotransferase (ALT/SGPT) 19 U/L (14-59) Alkaline Phosphatase 61 U/L (46-116) Total Protein 7.5 g/dL (6.4-8.2) Albumin 3.5 g/dL (3.4-5.0) Albumin/Globulin Ratio 0.9 (1.0-1.7) Lipase 88 U/L (73-393) Segmented Neutrophils % 95 % (35-66) Lymphocytes % 4 % (24-48) Monocytes % 1 % (0-10) Platelet Estimate Adequate (ADEQUATE) Laboratory Tests Test 10/28/16 04:40 White Blood Count 5.9 x10^3/uL (4.0-11.0) Red Blood Count 4.10 x10^6/uL (3.50-5.40) Hemoglobin 11.4 g/dL (12.0-15.5) Hematocrit 33.4 % (36.0-47.0) Mean Corpuscular Volume 82 fL (79-100) Mean Corpuscular Hemoglobin 28 pg (25-35) Mean Corpuscular Hemoglobin Concent 34 g/dL (31-37) Red Cell Distribution Width 13.7 % (11.5-14.5) Platelet Count 231 x10^3/uL (140-400) Neutrophils (%) (Auto) 89 % (31-73) Lymphocytes (%) (Auto) 10 % (24-48) Monocytes (%) (Auto) 1 % (0-9) Eosinophils (%) (Auto) 0 % (0-3) Basophils (%) (Auto) 0 % (0-3) Neutrophils # (Auto) 5.2 x10^3uL (1.8-7.7) Lymphocytes # (Auto) 0.6 x10^3/uL (1.0-4.8) Monocytes # (Auto) 0.1 x10^3/uL (0.0-1.1) Eosinophils # (Auto) 0.0 x10^3/uL (0.0-0.7) Basophils # (Auto) 0.0 x10^3/uL (0.0-0.2) Segmented Neutrophils % 95 % (35-66) Lymphocytes % 4 % (24-48) Monocytes % 1 % (0-10) Platelet Estimate Adequate (ADEQUATE) Sodium Level 138 mmol/L (136-145) Potassium Level 4.4 mmol/L (3.5-5.1) Chloride Level 105 mmol/L (98-107) Carbon Dioxide Level 22 mmol/L (21-32) Anion Gap 11 (6-14) Blood Urea Nitrogen 11 mg/dL (7-20) Creatinine 0.7 mg/dL (0.6-1.0) Estimated GFR (Cockcroft-Gault) 95.2 Glucose Level 132 mg/dL (70-99) Calcium Level 8.7 mg/dL (8.5-10.1) Problem List Problems Medical Problems: (1) Abdominal pain Status: Acute Assessment/Plan A: POD#1 s/p LPSC RSO P: D/c home. Problems: YANN MADDOX Jr, MD Oct 28, 2016 13:07
--- NOTE | 2016-10-28 13:08 | DISCH ---
DISCHARGE INSTRUCTIONS Condition on Discharge Condition on Discharge: Unstable Activity After Discharge Activity Instructions for Disc: Activity as tolerated Lifting Instructions after Dis: No heavy lifting Driving Instructions after Dis: Do not drive today Diet after Discharge Diet after Discharge: Regular Contacting the DRDragan after DC Call your doctor for: Concerns you may have Follow-Up Follow up with: Dr. Woo in 1 week. YANN WOO Jr, MD Oct 28, 2016 13:08
[2016-10-28] MEDS ORDERED: OXYC-323 PO (13:09)
[2016-10-28 14:00] VITALS: BP 125/62
--- NOTE | 2016-10-29 17:13 | PATHOLOGY ---
PATHOLOGY REPORT * * * * * * * * FINAL DIAGNOSIS: Fallopian tube and ovary, laparoscopic right salpingo-oophorectomy: - Hemorrhagic corpus luteum cyst and few small cystic follicles of ovary. COMMENT: There is no evidence of malignancy. (JPM:; 10/29/2016) REPORT ELECTRONICALLY SIGNED BY: Jacob Mathis M.D. DATE/TIME: 10/29/2016 17:13 * * * * * * * * GROSS PATHOLOGY: The specimen is received in formalin, labeled "Koko Yoon, right tube and ovary" is a fimbriated end of a fallopian tube with attached ovary. The fimbriated end measures 1.5 x 1.3 x 0.7 cm. Upon sectioning, a distinct lumen is not grossly identified. No distinct abnormalities are noted. The attached ovary measures 4.5 x 2.5 x 2.0 cm. Outer surface has a topete-white to pink-red, bosselated to cerebriform appearance. The cut surface has a pink-rose, spongy to whorled appearance. Several rose orange corpora lutea are identified ranging from 0.4-1.5 cm. Several, unilocular cortical cysts are identified measuring up to 0.5 cm. No additional abnormalities are noted. Range Technician sections are smooth in cassettes A1-A2. (JWP; 10/28/2016) INITIAL CPT CODE(S): A; 09449 Professional services performed by [facility] at [address] [address] Technical services performed by [facility] at [address] [place] [address], [address], [place] [address]. SPECIMEN(S) RECEIVED: A.Right tube and ovary CLINICAL HISTORY: Not given PATIENT: KOKO YOON /AGE: 2 1980 (Age: 36) PATIENT #: [id number] ALT CASE #: SPECIMEN COLLECTION DATE: 10/27/2016 SPECIMEN RECEIVED DATE: 10/28/2016 [facility] - [address] [place] [address] - PHONE: [phone] * * * END OF REPORT * * *
== END 2016-10-28 14:10 | disposition home or self-care (01) ==
LOC: ER 11:47 → INTOOBSV 17:13 → 3 NORTH 17:13
PROVIDERS: ADMIT Obstetrics & Gynecology; ATTEND Obstetrics & Gynecology
DX: N83.511 Torsion of right ovary and ovarian pedicle (principal); N28.1 Cyst of kidney, acquired; K43.9 Ventral hernia without obstruction or gangrene; Z90.710 Acquired absence of both cervix and uterus
CPT/HCPCS: 36415; 58661; 74177; 76830; 76856; 80048; 80053; 81001; 81025; 83690; 85007; 85025; 85610; 85730; 87086; 88305; 96365; 96375; 96376; 99285; A4215; C1782; G0378; J0690; J1100; J2250; J2270; J2405; J2550; J2704; J3490; J7030; Q9967; G0379; J3010; J7120; J2001

== ENCOUNTER 2018-01-02 21:43 | Emergency (ER) | payer OTHER ==
[~2018-01-02] VITALS: Ht 167.6 cm; Wt 127.0 kg
[~2018-01-02 21:43] MED LIST changes: +OXYC-323 PO
[2018-01-02 22:00] VITALS: BP 148/79
[2018-01-02] MEDS ORDERED: HYDROcodone/APAP 5/325MG 1 TAB TABLET PO ONE (22:30)
--- NOTE | 2018-01-02 22:43 | PHYS DOC ---
Past Medical History Past Medical History: No Pertinent History Past Surgical History: Cholecystectomy, Hysterectomy, Tonsillectomy, Tubal ligation, Other Additional Past Surgical Histo: Uterine ablation. adreal ectomy Alcohol Use: Rarely Drug Use: None Adult General Chief Complaint Chief Complaint: FOOT INJURY PAIN HPI HPI Patient is a 37 year old female who presents to the emergency room with complaints of left foot pain. She states she previously injured her foot about 3 weeks ago and had been doing better until this morning when she stepped out of her camper she felt a sharp pain in her foot again. She denies any twisting injury. States that she wore a pair [all day today but when she took the cowboy boot off tonight the pain increased. Patient states she is taking 800 mg of ibuprofen at home, currently she reports her pain as a 7 out of 10 on the pain scale. She denies any numbness, tingling, or weakness of the affected extremity. She denies any ankle pain in her left lower extremity. Review of Systems Review of Systems Constitutional: Denies fever or chills [] Musculoskeletal: Denies back pain; reports L foot pain and swelling Integument: Denies rash or skin lesions [] Neurologic: Denies headache, focal weakness or sensory changes [] All other systems were reviewed and found to be within normal limits, except as documented in this note. Current Medications Current Medications Current Medications Medications (Trade) Dose Ordered Sig/Osbaldo Start Time Stop Time Status Last Admin Dose Admin Acetaminophen/ Hydrocodone Bitart (Lortab 5/325) 1 tab 1X ONCE 01/02/18 22:30 01/02/18 22:31 DC 01/02/18 22:27 1 TAB Allergies Allergies Allergies Coded Allergies Type Severity Reaction Last Updated Verified guaifenesin Adverse Reaction Intermediate passed out 10/27/16 No phenylephrine Adverse Reaction Intermediate passed out 10/27/16 No phenylpropanolamine Adverse Reaction Intermediate passed out 10/27/16 No Physical Exam Physical Exam Constitutional: Well developed, well nourished, no acute distress, non-toxic appearance, obese [] HENT: Normocephalic, atraumatic, bilateral external ears normal,nose normal. [] Eyes: PERRLA, conjunctiva normal, no discharge. [] Skin: Warm, dry, no erythema, no rash. [] Extremities: No cyanosis, no clubbing, ROM intact; L mid steamer tender to palpation with mild 1+ swelling noted to Left foot, no deformity, 2+ pedal and posterior tibial L pulses. Normal extension and flexion of L foot Neurologic: Alert and oriented X 3, normal motor function, normal sensory function, no focal deficits noted. [] Psychologic: Affect normal, judgement normal, mood normal. [] Current Patient Data Vital Signs Vital Signs Date Time Temp Pulse Resp B/P (MAP) Pulse Ox O2 Delivery O2 Flow Rate FiO2 01/02/18 22:00 98.8 81 20 148/79 (102) 99 Room Air 98.8 EKG EKG [] Radiology/Procedures Radiology/Procedures L foot xray negative for acute fx or dislocation, read by Dr. Ba[] Course & Med Decision Making Course & Med Decision Making Pertinent Labs and Imaging studies reviewed. (See chart for details) Dx: L foot sprain Xray negative for acute fx or dislocation. True wrap and post-op shoe to left foot. Activity as tolerated. Tylenol or ibuprofen as needed for pain. Recommend application of ice, elevation, and rest of affected extremity. Wear the true wrap and post-op shoe that was placed until follow up appointment. Follow up with your PCP or Dr. Verdin if symptoms persist. Return to the ER if your symptoms worsen. Patient verbalized an understanding of home care, medications, follow-up, and return to ED instructions and was in agreement with the plan of care. [] Dragon Disclaimer Dragon Disclaimer This electronic medical record was generated, in whole or in part, using a voice recognition dictation system. Departure Departure Impression: Primary Impression: Sprain of left foot Additional Impression: Left foot pain Disposition: 01 HOME, SELF-CARE Condition: STABLE Referrals: HORACIO CARTAGENA APRN (PCP) JOYCELYN VERDIN MD Patient Instructions: Foot Sprain-Brief Additional Instructions: Activity as tolerated. Tylenol or ibuprofen as needed for pain. Recommend application of ice, elevation, and rest of affected extremity. Wear the true wrap and post-op shoe that was placed until follow up appointment. Follow up with your PCP or Dr. Verdin if symptoms persist. Return to the ER if your symptoms worsen. Problem Qualifiers Primary Impression: Sprain of left foot Encounter type: initial encounter Qualified Codes: S93.602A - Unspecified sprain of left foot, initial encounter KENDELL VARGHESE MORTGAGE LOAN OFFICER Jan 02, 2018 22:43
--- NOTE | 2018-01-03 07:57 | RAD ---
Left foot, 3 views, 01/02/2018: HISTORY: Foot injury A tiny calcific density noted along the dorsal aspect of the anterior portion of the talus is likely old. No significant acute fracture or dislocation is identified. There is mild diffuse soft tissue swelling. IMPRESSION: No acute bony abnormality is detected. Electronically signed by: Pierre Koch MD (01/03/2018 7:54 AM) [facility]
== END 2018-01-02 23:45 | disposition home or self-care (01) ==
LOC: ER 21:43
DX: S93.602A Unspecified sprain of left foot, initial encounter (principal); Z88.8 Allergy status to other drugs, medicaments and biological substances; W22.8XXA Striking against or struck by other objects, initial encounter; Y93.89 Activity, other specified; Y92.89 Other specified places as the place of occurrence of the external cause; Y99.8 Other external cause status
CPT/HCPCS: 73630; 99284

== ENCOUNTER → 2018-07-18 | Outpatient (CLI) | payer OTHER ==
[~2018-07-18] MED LIST changes: -HYDR-2758 PO; +HYDR-2761 PO; -OXYC-323 PO; +OXYC1TAB15 PO; +TRAM50TA PO
--- NOTE | 2018-07-18 16:04 | KCIC ---
3 view RIBS RIGHT AND PA CHEST Clinical indications: Right anterior rib pain for one day. Patient picked up son and felt a pop. COMPARISON: None available. Findings: There is mild cortical disruption of the lateral aspect of the right fifth rib. Finding is consistent with a nondisplaced rib fracture. No acute lung infiltrate or pleural effusion or pulmonary edema or lung mass or pneumothorax is seen. The heart size, pulmonary vasculature, mediastinum and both geronimo are unremarkable. Impression: Nondisplaced right fifth rib fracture. Electronically signed by: Magnus Pascual MD (07/18/2018 4:01 PM) [place] [id number]
== END | disposition home or self-care (01) ==
LOC: KCIC 10:11
PROVIDERS: ATTEND Nurse Practitioner Family
DX: S22.31XA Fracture of one rib, right side, initial encounter for closed fracture (principal); X58.XXXA Exposure to other specified factors, initial encounter; Y93.89 Activity, other specified; Y92.89 Other specified places as the place of occurrence of the external cause; Y99.8 Other external cause status
CPT/HCPCS: 71101

== ENCOUNTER 2018-08-15 12:34 | Emergency (ER) | payer OTHER ==
[~2018-08-15] VITALS: Ht 170.2 cm; Wt 127.0 kg
[~2018-08-15 12:34] MED LIST changes: -TRAM50TA PO
[2018-08-15 13:05] VITALS: BP 149/78
[2018-08-15] MEDS ORDERED: LIDOCAINE (700MG/PATCH) PATCH. TD SCH (13:15)
--- NOTE | 2018-08-15 13:36 | PHYS DOC ---
Past Medical History Past Medical History: No Pertinent History Past Surgical History: Cholecystectomy, Hysterectomy, Tonsillectomy, Tubal ligation, Other Additional Past Surgical Histo: Uterine ablation. adreal ectomy,GASTRIC SLEEVE Alcohol Use: Rarely Drug Use: None Adult General Chief Complaint Chief Complaint: RIB PAIN HPI HPI 38-year-old female presents to ER via POV for complaints of reinjury of right anterior rib. Patient has x-ray from 07/18/18 in her records showing nondisplaced right fifth rib fracture which she sustained when she picked up her son day prior to that and age. Patient states on Wednesday her son jumped on her re- injuring her ribs. She reports she does have increased pain with deep breath. Patient states she has had chills and felt slightly feverish. She denies productive cough. She denies bruising, swelling in rib area, or chest pain. She is former smoker quit more than 6 years ago. Pt reports she has been taking [id number] Tylenol as she cannot take NSAIDs due to prior gastric sleeve. Review of Systems Review of Systems Constitutional: Reports felt feverish denies fatigue or weakness Eyes: Denies change in visual acuity, redness, or eye pain [] HENT: Denies nasal congestion or sore throat [] Respiratory: Reports rt anterior rib pain just below breast- reports pain increases with deep breath Cardiovascular: Denies CP/palpitations GI: Denies abdominal pain, nausea, vomiting : Denies dysuria or hematuria [] Musculoskeletal: Denies back pain or joint pain [] Integument: Denies abrasions/swelling/bruising Neurologic: Denies headache, focal weakness or sensory changes. Denies dizziness All other systems were reviewed and found to be within normal limits, except as documented in this note. Current Medications Current Medications Current Medications Medications (Trade) Dose Ordered Sig/Osbaldo Start Time Stop Time Status Last Admin Dose Admin Lidocaine (Lidoderm) 1 patch DAILY 08/15/18 13:15 08/15/18 13:49 1 PATCH Allergies Allergies Allergies Coded Allergies Type Severity Reaction Last Updated Verified guaifenesin Adverse Reaction Intermediate passed out 10/27/16 No phenylephrine Adverse Reaction Intermediate passed out 10/27/16 No phenylpropanolamine Adverse Reaction Intermediate passed out 10/27/16 No Physical Exam Physical Exam Constitutional: Well developed, well nourished, no acute distress, non-toxic appearance. [] HENT: Normocephalic, atraumatic, oropharynx moist, nose normal. [] Eyes: Pupils equal, conjunctiva normal, no discharge. [] Neck: Normal range of motion, no tenderness, supple, no stridor. Trachea midline Cardiovascular: Heart rate regular rhythm, no murmur [] Lungs & Thorax: Bilateral breath sounds clear to auscultation- resp. equal/nonlabored. Tender on palpation right anterior ribs just below the breast line. No crepitus or palpable deformity. Abdomen: Bowel sounds normal, soft- no distention or rigidity Skin: Warm, dry Back: No tenderness, full ROM Extremities: No tenderness, no cyanosis, no clubbing, ROM intact, no edema. [] Neurologic: Alert and oriented X 3, normal motor function, normal sensory function, no focal deficits noted. [] Psychologic: Affect normal, judgement normal, mood normal. [] Current Patient Data Vital Signs Vital Signs Date Time Temp Pulse Resp B/P (MAP) Pulse Ox O2 Delivery O2 Flow Rate FiO2 08/15/18 13:05 97.7 55 18 149/78 (101) 100 Room Air 97.7 EKG EKG [] Radiology/Procedures Radiology/Procedures PROCEDURE: RIBS RIGHT AND PA CHEST EXAM: RIBS RIGHT AND PA CHEST. HISTORY: Rib fractures, right chest pain. COMPARISON: 07/18/2018. FINDINGS: There is no pneumothorax or pleural effusion. The heart is at the upper limits of normal size. There are no confluent infiltrates. Nondisplaced right fifth and sixth rib fractures are noted. There are no displaced right rib fractures. Postsurgical changes are noted in both upper quadrants. There is a mild lumbar levocurvature.. IMPRESSION: 1. Nondisplaced subacute right fifth and sixth anterior rib fractures. No pneumothorax. Electronically signed by: Michael Romero MD (08/15/2018 2:20 PM) [facility] DICTATED and SIGNED BY: LU ROMERO MD DATE: 08/15/18 1420 Course & Med Decision Making Course & Med Decision Making Pertinent Imaging studies reviewed. (See chart for details) 1430: Pt was evaluated in the ER for complaints of right anterior rib pain which was from prior injury and really injured on Wednesday. Patient had a head x-ray on 07/18/18 showing a right fifth rib nondisplaced fracture. With reinjury x-ray was obtained showing subacute nondisplaced right fifth and sixth rib fractures. Neg. for infiltrate, pneumothorax, or pleural effusion. X-ray results were discussed with patient. Patient at this time is in no visible distress equal nonlabored respirations. Patient had Lidoderm patch applied while in the ER. Patient had underwire bra on she discussion had with patient regarding decreased wearing of underwire bowel to prevent pressure on affected area. Patient will be provided with incentive spirometer with education on device. Patient states she had had tramadol following the initial injury so will provide small quantity of this with discharge paperwork. Will also provide Lidoderm patch prescription. Education provided on signs and symptoms to return to ER. Discharge instructions were discussed. Patient to follow-up with primary care physician if symptoms persist or with any concerns. Dragon Disclaimer Dragon Disclaimer This electronic medical record was generated, in whole or in part, using a voice recognition dictation system. Departure Departure Impression: Primary Impression: Right rib fracture Disposition: 01 HOME, SELF-CARE Condition: STABLE Referrals: HORACIO CARTAGENA APRN (PCP) Patient Instructions: Incentive Spirometer, Rib Fracture Additional Instructions: Avoid binders or wraps around your rib cage to prevent pneumonia. Use incentive spirometer as directed. Lidoderm patch prescription as directed. Tylenol as directed on container for additional pain relief as needed. If symptoms persist follow-up with your primary care physician for reevaluation and further care. Scripts Tramadol Hcl (TRAMADOL HCL) 50 Mg Tablet 50 MG PO Q6HRS PRN for PAIN, #10 TAB 0 Refills No driving or drinking alcohol while taking this medication Prov: CARMELA MOREL APRN 08/15/18 CARMELA MOREL APRN Aug 15, 2018 13:36
--- NOTE | 2018-08-15 14:23 | RAD ---
EXAM: RIBS RIGHT AND PA CHEST. HISTORY: Rib fractures, right chest pain. COMPARISON: 07/18/2018. FINDINGS: There is no pneumothorax or pleural effusion. The heart is at the upper limits of normal size. There are no confluent infiltrates. Nondisplaced right fifth and sixth rib fractures are noted. There are no displaced right rib fractures. Postsurgical changes are noted in both upper quadrants. There is a mild lumbar levocurvature.. IMPRESSION: 1. Nondisplaced subacute right fifth and sixth anterior rib fractures. No pneumothorax. Electronically signed by: Michael Romero MD (08/15/2018 2:20 PM) [facility]
[2018-08-15] MEDS ORDERED: TRAM50TA PO (14:40)
== END 2018-08-15 15:09 | disposition home or self-care (01) ==
LOC: ER 12:34
DX: S22.41XA Multiple fractures of ribs, right side, initial encounter for closed fracture (principal); Z88.8 Allergy status to other drugs, medicaments and biological substances; X50.0XXA Overexertion from strenuous movement or load, initial encounter; Y93.89 Activity, other specified; Y92.89 Other specified places as the place of occurrence of the external cause; Y99.8 Other external cause status
CPT/HCPCS: 71101; 99284

== ENCOUNTER → 2018-08-19 | Outpatient (CLI) | payer OTHER ==
[2018-08-15 13:05] VITALS: BP 149/78
[~2018-08-19] MED LIST changes: +TRAM50TA PO
--- NOTE | 2018-08-19 15:50 | KCIC ---
EXAM: Dual energy x-ray absorptiometry (DEXA). HISTORY: Post menopausal screening. Multiple fractures. TECHNIQUE: Dual energy x-ray absorptiometry of the lumbar spine and the left hip was performed. Calculation of bone mineral density based on standard deviations above or below the expected young adult normal value (T-score) was completed. FINDINGS: The average bone mineral density associated with L1-L4 is 1.057 g/cm^2, corresponding with a T-score of 0.1. The average total bone mineral density associated with the left hip is 1.075 g/cm^2, corresponding with a T-score of 1.1. No comparison examinations are available. Refer to the worksheets for full detail. IMPRESSION: 1. Normal. Fracture risk is low. Note: Definitions established by the World Health Organization: 1. Normal: T-score is -1.0 or above the expected mean for a young adult. 2. Osteopenia: T-score is between -1.0 and -2.5. 3. Osteoporosis: T-score is -2.5 or below. Electronically signed by: Michael Romero MD (08/19/2018 3:47 PM) [facility]
== END | disposition home or self-care (01) ==
LOC: KCIC DEXA 11:30
PROVIDERS: ATTEND Nurse Practitioner Family
DX: Z13.820 Encounter for screening for osteoporosis (principal); Z88.8 Allergy status to other drugs, medicaments and biological substances
CPT/HCPCS: 77080

== ENCOUNTER → 2019-07-26 | Outpatient (CLI) | payer OTHER ==
--- NOTE | 2019-07-26 10:43 | RAD ---
EXAM: Left foot, 3 views. HISTORY: Pain. COMPARISON: 01/02/2018 FINDINGS: 3 views of the left foot are obtained. There is no fracture, dislocation or subluxation. IMPRESSION: No acute osseous finding. Electronically signed by: Olivia Black MD (07/26/2019 10:40 AM) [email or web address]
== END | disposition home or self-care (01) ==
LOC: RAD 10:01
PROVIDERS: ATTEND Nurse Practitioner Family
DX: M79.672 Pain in left foot (principal)
CPT/HCPCS: 73630

== ENCOUNTER 2019-09-01 11:43 | Emergency (ER) | payer OTHER ==
[~2019-09-01] VITALS: Ht 170.2 cm; Wt 98.1 kg
[2019-09-01] MEDS ORDERED: IV NORMAL SALINE 1000ML BAG 1,000 ML IV SCH (12:16)
[2019-09-01] MEDS ORDERED: ONDANSETRON PF 4 MG/2 ML VIAL. ONE (12:22)
[2019-09-01] MEDS ORDERED: fentaNYL PF VIAL 100 MCG/2 ML VIAL ONE (12:23)
[2019-09-01] MEDS ORDERED: ONDANSETRON PF 4 MG/2 ML VIAL. IVP ONE (12:30)
[2019-09-01] MEDS ORDERED: fentaNYL PF VIAL 100 MCG/2 ML VIAL IVP ONE (12:30)
[2019-09-01 12:32] LABS: BILIRUBIN,URINE NEGATIVE (NEG); CLARITY,URINE CLEAR; COLOR,URINE YELLOW; NITRITE,URINE NEGATIVE (NEG); PH,URINE 7.5 (<5.0-8.0); PROTEIN,URINE NEGATIVE (NEG-TRACE); UROBILINOGEN,URINE 0.2 mg/dL (0.2 mg/dL)
[2019-09-01 12:34] LABS: BASO # 0.1 x10^3/uL (0.0-0.2); BASO % 1 % (0-3); EOS # 0.8 x10^3/uL (0.0-0.7); EOS % 8 % (0-3); HEMATOCRIT 38.6 % (36.0-47.0); HEMOGLOBIN 12.9 g/dL (12.0-15.5); LYMPH # 1.8 x10^3/uL (1.0-4.8); LYMPH % 18 % (24-48); MEAN CORPUSCULAR HEMOGLOBIN 30 pg (25-35); MEAN CORPUSCULAR HGB CONC 34 g/dL (31-37); MEAN CORPUSCULAR VOLUME 89 fL (79-100); MONO # 0.4 x10^3/uL (0.0-1.1); MONO % 5 % (0-9); NEUT # 6.8 x10^3/uL (1.8-7.7); NEUT % 69 % (31-73); PLATELET COUNT 224 x10^3/uL (140-400); RED BLOOD COUNT 4.36 x10^6/uL (3.50-5.40); WHITE BLOOD COUNT 9.8 x10^3/uL (4.0-11.0)
[2019-09-01 12:39] LABS: BARBITURATES NEG (NEG); BENZODIAZEPINES NEG (NEG); CANNABINOIDS NEG (NEG); COCAINE NEG (NEG); METHADONE NEG (NEG); OPIATES NEG (NEG); PHENCYCLIDINE NEG (NEG)
[2019-09-01 12:41] LABS: CALCIUM 8.9 mg/dL (8.5-10.1); CREATININE 0.7 mg/dL (0.6-1.0); GFR 93.6; POTASSIUM 3.9 mmol/L (3.5-5.1)
[2019-09-01 12:41] LABS: AMPHETAMINE/METHAMPHETAMINE NEG (NEG)
[2019-09-01 12:43] LABS: PROTHROMBIN TIME PATIENT 13.2 SEC (11.7-14.0)
[2019-09-01 12:44] LABS: SQUAMOUS EPITHELIAL CELL,UR FEW /LPF
[2019-09-01 12:45] LABS: BACTERIA,URINE 0 /HPF (0-FEW); RBC,URINE 0 /HPF (0-2)
[2019-09-01 12:47] LABS: ALBUMIN 3.5 g/dL (3.4-5.0); TOTAL BILIRUBIN 0.3 mg/dL (0.2-1.0); TOTAL PROTEIN 7.1 g/dL (6.4-8.2)
--- NOTE | 2019-09-01 12:58 | PHYS DOC ---
Past Medical History Past Medical History: No Pertinent History Past Surgical History: Cholecystectomy, Hysterectomy, Tonsillectomy, Tubal ligation, Other Additional Past Surgical Histo: Uterine ablation,adrenalectomy,GASTRIC SLEEVE Smoking Status: Current Every Day Smoker Additional Information: 0.25 PPD Alcohol Use: Occasionally Drug Use: None General Adult EDM: Chief Complaint: ABDOMINAL PAIN HPI: HPI: Patient is a 39 year old female who presents with nausea, vomiting, diarrhea, fever up to 101 x 3 days. She states she has left upper quadrant pain and a bad taste in her mouth. States she last took Tylenol at 1030 this morning. She is afebrile in the ED. She has a history of gastric sleeve, tonsillectomy, tubal ligation, hysterectomy, cholecystectomy. She rates her pain a 6 out of 10 and when she is moving she states it is a 9 out of 10. She states it feels like a cramping or contraction type pain. Review of Systems: Review of Systems: Constitutional: fever or chills. [] GI: abdominal pain, nausea, vomiting, denies bloody stools. + diarrhea. [] Heart Score: Risk Factors: Risk Factors: DM, Current or recent (<one month) smoker, HTN, HLP, family history of CAD, obesity. Risk Scores: Score 0 - 3: 2.5% MACE over next 6 weeks - Discharge Home Score 4 - 6: 20.3% MACE over next 6 weeks - Admit for Clinical Observation Score 7 - 10: 72.7% MACE over next 6 weeks - Early Invasive Strategies Current Medications: Current Medications Medications (Trade) Dose Ordered Sig/[facility] Start Time Stop Time Status Last Admin Dose Admin Fentanyl Citrate (Fentanyl 2ml Vial) 100 mcg STK-MED ONCE 09/01/19 12:23 09/01/19 12:23 DC Info (CONTRAST GIVEN -- Rx MONITORING) 1 each PRN DAILY PRN 09/01/19 13:00 09/03/19 12:59 Iohexol (Omnipaque 300 Mg/ml) 75 ml 1X ONCE 09/01/19 13:00 09/01/19 13:01 Ondansetron HCl (Zofran) 4 mg STK-MED ONCE 09/01/19 12:22 09/01/19 12:23 DC Sodium Chloride 1,000 ml @ 1,000 mls/hr Q1H 09/01/19 12:16 09/01/19 13:15 09/01/19 12:25 1,000 MLS/HR Allergies: Allergies: Allergies Coded Allergies Type Severity Reaction Last Updated Verified ibuprofen Allergy Unknown "HAD GASTRIC SLEEVE SURGERY" 09/01/19 Yes guaifenesin Adverse Reaction Intermediate passed out 10/27/16 No phenylephrine Adverse Reaction Intermediate passed out 10/27/16 No phenylpropanolamine Adverse Reaction Intermediate passed out 10/27/16 No Physical Exam: PE: Constitutional: Well developed, well nourished, no acute distress, non-toxic appearance. [] HENT: Normocephalic, atraumatic, bilateral external ears normal, oropharynx moist, no oral exudates, nose normal. [] Eyes: PERRLA, EOMI, conjunctiva normal, no discharge. [] Neck: Normal range of motion, no tenderness, supple, no stridor. [] Cardiovascular:Heart rate regular rhythm, no murmur [] Lungs & Thorax: Bilateral breath sounds clear to auscultation [] Abdomen: Bowel sounds normal, soft, LUQ tenderness, no masses, no pulsatile masses. [] Skin: Warm, dry, no erythema, no rash. [] Back: No tenderness, no CVA tenderness. [] Extremities: No tenderness, no cyanosis, no clubbing, ROM intact, no edema. [] Neurologic: Alert and oriented X 3, normal motor function, normal sensory function, no focal deficits noted. [] Psychologic: Affect normal, judgement normal, mood normal. [] Current Patient Data: Labs: Laboratory Tests Test 09/01/19 12:00 09/01/19 12:23 Urine Collection Type Unknown Urine Color Yellow Urine Clarity Clear Urine pH 7.5 (<5.0-8.0) Urine Specific [place] 1.010 (1.000-1.030) Urine Protein Negative mg/dL (NEG-TRACE) Urine Glucose (UA) Negative mg/dL (NEG) Urine Ketones (Stick) Negative mg/dL (NEG) Urine Blood Negative (NEG) Urine Nitrite Negative (NEG) Urine Bilirubin Negative (NEG) Urine Urobilinogen Dipstick 0.2 mg/dL (0.2 mg/dL) Urine Leukocyte Esterase Negative (NEG) Urine RBC 0 /HPF (0-2) Urine WBC 1-4 /HPF (0-4) Urine Squamous Epithelial Cells Few /LPF Urine Bacteria 0 /HPF (0-FEW) Urine Mucus Mod /LPF Urine Opiates Screen Neg (NEG) Urine Methadone Screen Neg (NEG) Urine Barbiturates Neg (NEG) Urine Phencyclidine Screen Neg (NEG) Urine Amphetamine/Methamphetamine Neg (NEG) Urine Benzodiazepines Screen Neg (NEG) Urine Cocaine Screen Neg (NEG) Urine Cannabinoids Screen Neg (NEG) Urine Ethyl Alcohol Neg (NEG) White Blood Count 9.8 x10^3/uL (4.0-11.0) Red Blood Count 4.36 x10^6/uL (3.50-5.40) Hemoglobin 12.9 g/dL (12.0-15.5) Hematocrit 38.6 % (36.0-47.0) Mean Corpuscular Volume 89 fL (79-100) Mean Corpuscular Hemoglobin 30 pg (25-35) Mean Corpuscular Hemoglobin Concent 34 g/dL (31-37) Red Cell Distribution Width 14.0 % (11.5-14.5) Platelet Count 224 x10^3/uL (140-400) Neutrophils (%) (Auto) 69 % (31-73) Lymphocytes (%) (Auto) 18 % (24-48) L Monocytes (%) (Auto) 5 % (0-9) Eosinophils (%) (Auto) 8 % (0-3) H Basophils (%) (Auto) 1 % (0-3) Neutrophils # (Auto) 6.8 x10^3/uL (1.8-7.7) Lymphocytes # (Auto) 1.8 x10^3/uL (1.0-4.8) Monocytes # (Auto) 0.4 x10^3/uL (0.0-1.1) Eosinophils # (Auto) 0.8 x10^3/uL (0.0-0.7) H Basophils # (Auto) 0.1 x10^3/uL (0.0-0.2) Prothrombin Time 13.2 SEC (11.7-14.0) Prothrombin Time INR 1.0 (0.8-1.1) Sodium Level 140 mmol/L (136-145) Potassium Level 3.9 mmol/L (3.5-5.1) Chloride Level 105 mmol/L (98-107) Carbon Dioxide Level 30 mmol/L (21-32) Anion Gap 5 (6-14) L Blood Urea Nitrogen 9 mg/dL (7-20) Creatinine 0.7 mg/dL (0.6-1.0) Estimated GFR (Cockcroft-Gault) 93.6 BUN/Creatinine Ratio 13 (6-20) Glucose Level 94 mg/dL (70-99) Calcium Level 8.9 mg/dL (8.5-10.1) Total Bilirubin 0.3 mg/dL (0.2-1.0) Aspartate Amino Transferase (AST) 22 U/L (15-37) Alanine Aminotransferase (ALT) 29 U/L (14-59) Alkaline Phosphatase 57 U/L (46-116) Total Protein 7.1 g/dL (6.4-8.2) Albumin 3.5 g/dL (3.4-5.0) Albumin/Globulin Ratio 1.0 (1.0-1.7) Lipase 108 U/L (73-393) Laboratory Tests 09/01/19 12:23 Laboratory Tests 09/01/19 12:23 Vital Signs: Vital Signs Date Time Temp Pulse Resp B/P (MAP) Pulse Ox O2 Delivery O2 Flow Rate FiO2 09/01/19 12:25 17 98 Room Air 09/01/19 12:03 98.4 65 125/75 (92) 98.4 EKG: EKG: [] Radiology/Procedures: Radiology/Procedures: [] Impression: [facility] [address] [place] [address] IMAGING REPORT Signed PATIENT: KOKO YOON JACCOUNT: [id number] : 1980 LOCATION: ER AGE: 39 SEX: F EXAM STATUS: REG ER ORD. PHYSICIAN: GIULIANA MEYERS APRN REASON: ABD PAIN, VOMITING, DIARRHEA, FEVER PROCEDURE: CT ABD PELV W/ IV CONTRST ONLY Exam: CT abdomen/pelvis with intravenous contrast Indication: Abdominal pain, vomiting, diarrhea, fever Comparison: CT abdomen and pelvis 10/27/2016 Technique: Helical CT imaging performed of the abdomen and pelvis after the intravenous administration of 75 mL Omnipaque 300 contrast. Sagittal and coronal reformats were obtained. One or more of the following individualized dose reduction techniques were utilized for this examination: 1. Automated exposure control 2. Adjustment of the mA and/or kV according to patient size 3. Use of iterative reconstruction technique. Findings: Lower chest: Lung bases are clear. Heart is normal in size. Liver: The liver is normal in size. No focal liver lesion. Gallbladder/Biliary Tree: Gallbladder surgically absent. Bile ducts are normal. Pancreas: Normal. Spleen: Normal. Adrenal Glands: The right adrenal gland is normal. Left adrenal gland is not well visualized. Kidneys/Ureters/Bladder: Kidneys are normal in size and enhance symmetrically. No hydronephrosis. Unchanged 5.2 cm simple cyst and a few new nonobstructing calculi in the left kidney. Ureters and bladder are normal. Reproductive Organs: Uterus is surgically absent. No adnexal mass. Stomach, small bowel, and colon: There are new surgical changes of gastric sleeve. Small bowel is normal. Scattered diverticula in descending and sigmoid colon. There is mild wall thickening of the ascending and transverse colon, and possibly to a lesser extent in the descending and sigmoid colon. No significant pericolonic inflammation. Vasculature: Abdominal aorta is normal in caliber. Lymph Nodes: No lymphadenopathy. Peritoneum and retroperitoneum: No free fluid or free air. Bones: No acute osseous abnormality. Miscellaneous: Small fat-containing ventral hernia in the upper abdomen Impression: 1. Colitis, predominantly involving the ascending and transverse colon. There may be involvement of the descending and sigmoid colon, to a lesser extent. Few scattered colonic diverticula. 2. New surgical changes of gastric sleeve. 3. Nonobstructing left nephrolithiasis. 4. Small fat-containing ventral hernia. Electronically signed by: Macarena Trammell MD (09/01/2019 2:00 PM) [id number] DICTATED and SIGNED BY: MACARENA TRAMMELL MD DATE: 09/01/191399 Course & Med Decision Making: Course & Med Decision Making Pertinent Labs and Imaging studies reviewed. (See chart for details) Alert and oriented. Speaks in full clear sentences. Ambulatory with steady gait. Tenderness to the left upper quadrant but abdomen is otherwise soft and nontender. Afebrile in the ER. Skin pink warm and dry. Denies dysuria, back pain, headache, dizziness, chest pain, shortness of air, cough, COVID symptoms, numbness or tingling, blood in her urine or stool. Patient has tolerated drinking water without vomiting. She received Cipro and Flagyl in the ED. She will be sent home with a refill for oral to GI and on Cipro and Flagyl. [] Leann Disclaimer: Dragon Disclaimer: This electronic medical record was generated, in whole or in part, using a voice recognition dictation system. Departure Departure Impression: Primary Impression: Colitis Disposition: HOME, SELF-CARE Condition: STABLE Referrals: HORACIO CARTAGENA APRN (PCP) MAX HOLBROOK MD Patient Instructions: Colitis Additional Instructions: Follow-up with GI or your primary care doctor soon as possible. Take medications as prescribed and with food if possible. Scripts Ondansetron (ONDANSETRON ODT) 4 Mg Tab.rapdis 1 TAB PO PRN Q6-8HRS, #16 TAB Prov: GIULIANA MEYERS APRN 09/01/19 Metronidazole (FLAGYL) 500 Mg Tablet 1 TAB PO BID, #14 TAB Prov: GIULIANA MEYERS APRN 09/01/19 Ciprofloxacin Hcl (CIPRO) 500 Mg Tablet 1 TAB PO BID for 7 Days, #14 TAB 0 Refills Prov: GIULIANA MEYERS APRN 09/01/19 Justicifation of Admission Dx: Justifications for Admission: Justification of Admission Dx: N/A GIULIANA MEYERS APRN Sep 01, 2019 12:58
[2019-09-01] MEDS ORDERED: CONTRAST GIVEN. MC PRN (13:00)
[2019-09-01] MEDS ORDERED: IOHEXOL 300 MG/ML 100ML VIAL. IV ONE (13:00)
--- NOTE | 2019-09-01 14:03 | RAD ---
Exam: CT abdomen/pelvis with intravenous contrast Indication: Abdominal pain, vomiting, diarrhea, fever Comparison: CT abdomen and pelvis 10/27/2016 Technique: Helical CT imaging performed of the abdomen and pelvis after the intravenous administration of 75 mL Omnipaque 300 contrast. Sagittal and coronal reformats were obtained. One or more of the following individualized dose reduction techniques were utilized for this examination: 1. Automated exposure control 2. Adjustment of the mA and/or kV according to patient size 3. Use of iterative reconstruction technique. Findings: Lower chest: Lung bases are clear. Heart is normal in size. Liver: The liver is normal in size. No focal liver lesion. Gallbladder/Biliary Tree: Gallbladder surgically absent. Bile ducts are normal. Pancreas: Normal. Spleen: Normal. Adrenal Glands: The right adrenal gland is normal. Left adrenal gland is not well visualized. Kidneys/Ureters/Bladder: Kidneys are normal in size and enhance symmetrically. No hydronephrosis. Unchanged 5.2 cm simple cyst and a few new nonobstructing calculi in the left kidney. Ureters and bladder are normal. Reproductive Organs: Uterus is surgically absent. No adnexal mass. Stomach, small bowel, and colon: There are new surgical changes of gastric sleeve. Small bowel is normal. Scattered diverticula in descending and sigmoid colon. There is mild wall thickening of the ascending and transverse colon, and possibly to a lesser extent in the descending and sigmoid colon. No significant pericolonic inflammation. Vasculature: Abdominal aorta is normal in caliber. Lymph Nodes: No lymphadenopathy. Peritoneum and retroperitoneum: No free fluid or free air. Bones: No acute osseous abnormality. Miscellaneous: Small fat-containing ventral hernia in the upper abdomen Impression: 1. Colitis, predominantly involving the ascending and transverse colon. There may be involvement of the descending and sigmoid colon, to a lesser extent. Few scattered colonic diverticula. 2. New surgical changes of gastric sleeve. 3. Nonobstructing left nephrolithiasis. 4. Small fat-containing ventral hernia. Electronically signed by: Macarena Trammell MD (09/01/2019 2:00 PM) [id number]
[2019-09-01] MEDS ORDERED: CIPROFLOXACIN 400MG PREMIX 200 ML IV ONE (14:15)
[2019-09-01] MEDS ORDERED: CIPR500T94 PO (15:32)
[2019-09-01] MEDS ORDERED: ONDA4TAB12 PO (15:32)
[2019-09-01] MEDS ORDERED: METR500T PO (15:32)
[2019-09-01 16:16] VITALS: BP 101/57
== END 2019-09-01 16:23 | disposition home or self-care (01) ==
LOC: ER 11:43
DX: K52.9 Noninfective gastroenteritis and colitis, unspecified (principal); R11.2 Nausea with vomiting, unspecified; R10.12 Left upper quadrant pain; R05 Cough; F17.200 Nicotine dependence, unspecified, uncomplicated; Z90.710 Acquired absence of both cervix and uterus; Z90.49 Acquired absence of other specified parts of digestive tract; Z98.51 Tubal ligation status; Z88.6 Allergy status to analgesic agent
CPT/HCPCS: 36415; 74177; 80053; 80307; 81001; 83690; 85025; 85610; 96361; 96365; 96367; 96375; 99285; J0744; J2405; J3010; J3490; J7030; Q9967

== ENCOUNTER → 2020-01-01 | Outpatient (CLI) | payer OTHER ==
[~2020-01-01] MED LIST changes: +CIPR500T94 PO; +METR500T PO; +ONDA4TAB12 PO
--- NOTE | 2020-01-01 16:17 | KCIC ---
RIBS RIGHT AND PA CHEST DATE: 01/01/2020 12:00 AM INDICATION: Reason: Rt lower rib pain since 12/30/19, hurts to breathe. / Spl. Instructions: Smoker of 14 yrs, quit 8 yrs. ago, started again 3 months ago. / History: COMPARISON: None available. FINDINGS: Chest: Heart size is within normal limits. No focal consolidations are seen. No evidence for pulmonary edema, pleural effusion, or pneumothorax. Bones: No radiographic evidence for a displaced, right-sided rib fracture is seen. IMPRESSION: No radiographic evidence for right-sided rib fracture. Electronically signed by: Forest Archuleta MD (01/01/2020 4:14 PM) [id number]
== END ==
LOC: KCIC 15:07
PROVIDERS: ATTEND Nurse Practitioner Family
DX: R07.81 Pleurodynia (principal)
CPT/HCPCS: 71101